=== PATIENT | male | born 1985 | race African-American/Black ===

== ENCOUNTER 2020-04-19 19:59 | Emergency (ER) | payer BC ==
[~2020-04-19] VITALS: Ht 182.9 cm; Wt 97.5 kg
[2020-04-19] MEDS ORDERED: NORCO 5-325 TA1 EAC2 PO (20:48)
[2020-04-19 21:07] VITALS: BP 116/78
== END 2020-04-19 21:09 | disposition home or self-care (01) ==
LOC: M.ERS 19:59
DX: S40.011A Contusion of right shoulder, initial encounter (principal); W18.39XA Other fall on same level, initial encounter; Y93.61 Activity, american tackle football; Y92.89 Other specified places as the place of occurrence of the external cause; Y99.8 Other external cause status